=== PATIENT | female | born 1945 | race African-American/Black ===

== ENCOUNTER 2024-04-02 19:45 | Emergency (ER) | payer MEDICARE, OTHER ==
[~2024-04-02] VITALS: Ht 172.7 cm; Wt 141.0 kg
[2024-04-02 19:59] VITALS: O2SAT 97
[2024-04-02 21:20] VITALS: TEMP 99.7
[2024-04-02] MEDS: ACETAMINOPHEN 500MG TABLET PO ONE (21:20)
[2024-04-02] MEDS: TRAMADOL 50MG TABLET PO ONE (21:20)
[2024-04-02 22:28] LABS: EOSINOPHILS % 0.1 % (0.0-5.0); HEMATOCRIT. 31.1 % (36.0-48.0); HEMOGLOBIN. 9.7 g/dL (12.0-16.0); LYMPHOCYTES % 8.4 % (20.0-50.0); MEAN CORPUSCULAR HGB CONC 31.2 g/dL (31.0-37.0); MEAN CORPUSCULAR VOLUME 89.8 fL (81.0-99.0); MEAN PLATELET VOLUME 7.4 fl (7.4-10.4); MONOCYTES % 11.1 % (2.0-8.0); NEUTROPHILS % 80.4 % (40.0-76.0); PLATELET 363 x1000/uL (130-400); RED BLOOD CELL COUNT 3.46 mill/uL (4.2-5.4); WHITE BLOOD COUNT 19.7 x1000/uL (4.5-11.0)
[2024-04-02 22:33] LABS: CHLORIDE 106 mEq/L (98-107); POTASSIUM 3.9 mEq/L (3.5-5.1); SODIUM 140 mEq/L (136-145)
[2024-04-02 22:34] LABS: CARBON DIOXIDE 24 mEq/L (21-32)
[2024-04-02 22:35] LABS: CALCIUM 9.1 mg/dL (8.7-10.4)
[2024-04-02 22:39] LABS: CREATININE 3.5 mg/dL (0.6-1.0); GLUCOSE 128 mg/dL (70-105); UREA NITROGEN BLOOD 50 mg/dL (9-23)
[2024-04-02 22:41] LABS: ALANINE AMINOTRANSFERASE 159 IU/L (10-49); ALBUMIN 4.2 g/dL (3.2-4.8); ASPARTATE AMINOTRANSFERASE 464 IU/L (<34)
[2024-04-02 22:42] LABS: BILIRUBIN TOTAL 0.8 mg/dL (0.1-1.0); PROTEIN TOTAL 7.1 g/dL (6.0-8.3)
[2024-04-02] MEDS: SODIUM CHLORIDE 0.9% 1,000 ML IV ONE (22:57)
[2024-04-02 23:38] LABS: INR 1.8; PROTHROMBIN TIME 19.4 sec (9.6-11.0)
[2024-04-02 23:55] LABS: TROPONIN I HIGH SENSITIVITY 134 ng/L (3.0-34)
[2024-04-02 23:59] LABS: CREATINE KINASE 30884 IU/L (34-145)
[2024-04-03 02:12] VITALS: BP 102/62; PULSE 94; RESP 18; O2SAT 97
[2024-04-03] MEDS ORDERED: GABA-532 PO (02:14)
[2024-04-03] MEDS ORDERED: HYDR100T31 PO (02:14)
[2024-04-03] MEDS ORDERED: WARF-53 PO (02:14)
[2024-04-03] MEDS ORDERED: AMLO5TAB88 PO (02:14)
[2024-04-03] MEDS ORDERED: SIMV-43 PO (02:14)
[2024-04-03] MEDS ORDERED: FAMO20TA8 PO (02:14)
[2024-04-03] MEDS ORDERED: ZOLPIDEM TARTRATE 5MG TABLET PO PRN (02:15)
[2024-04-03] MEDS ORDERED: ACETAMINOPHEN 325MG TABLET PO PRN (02:15)
[2024-04-03] MEDS: SODIUM BICARBONATE 100 MEQ in DEXTROSE 5% WATER 900 ML IV STA (02:21)
[2024-04-03] MEDS ORDERED: CEFTRIAXONE 1GM/50ML 50 ML IV SCH (03:00)
[2024-04-03] MEDS ORDERED: FAMOTIDINE 20MG TABLET PO SCH ×2 (09:00)
[2024-04-03] MEDS ORDERED: HEPARIN 5000 UNITS/ML VIAL SUBCUT SCH (09:00)
[2024-04-03] MEDS ORDERED: SODIUM CHLORIDE 0.9% 1,000 ML IV SCH (12:00)
== END 2024-04-03 02:22 | disposition short-term general hospital (02) ==
LOC: ER 19:45 → EDBEDREQTM 04-03 00:10 → EDBEDREQSVC 04-03 00:10 → EDBEDREQ 04-03 00:10 → ER 04-03 02:22 → CANBEDREQ 04-03 02:39
DX: S70.12XA Contusion of left thigh, initial encounter (principal); S70.11XA Contusion of right thigh, initial encounter; I10 Essential (primary) hypertension; G31.89 Other specified degenerative diseases of nervous system; E11.9 Type 2 diabetes mellitus without complications; W18.39XA Other fall on same level, initial encounter; Y93.89 Activity, other specified; Y92.89 Other specified places as the place of occurrence of the external cause; Y99.8 Other external cause status
CPT/HCPCS: 99285; 71045; 96361; 80053; 81025; 82550; 85025; 85610; 84484; 36415; 73552; 72100; 72170; 73560; 93005; 96365; 70450; J7030; J3490; J7070